=== PATIENT | male | born 1970 | race Caucasian/White ===

== ENCOUNTER 2021-03-27 01:07 | Emergency (ER) | payer OTHER ==
[~2021-03-27] VITALS: Ht 170.2 cm; Wt 77.7 kg
[2021-03-27 01:41] LABS: BASO # 0.1 10^3/uL (0.0-0.2); BASO % 0.9 % (0.0-1.0); EOS # 0.1 10^3/uL (0.0-0.5); EOS % 2.3 % (0.0-3.0); HEMATOCRIT 41.8 % (42.0-52.0); HEMOGLOBIN 14.7 g/dl (13.5-17.5); LYMPH # 1.4 10^3/uL (1.5-5.0); LYMPH % 26.3 % (24.0-44.0); MEAN CORPUSCULAR HEMOGLOBIN 32.5 pg (27.0-33.0); MEAN CORPUSCULAR HGB CONC 35.2 g/dl (32.0-36.5); MEAN CORPUSCULAR VOLUME 92.3 fl (80.0-96.0); MONO # 0.5 10^3/uL (0.0-0.8); MONO % 8.6 % (2.0-8.0); NEUTROPHILS # 3.3 10^3/uL (1.5-8.5); NEUTROPHILS % 61.3 % (36.0-66.0); PLATELET COUNT, AUTOMATED 127 10^3/uL (150-450); RED BLOOD COUNT 4.53 10^6/uL (4.30-6.10); WHITE BLOOD COUNT 5.3 10^3/uL (4.0-10.0)
[2021-03-27] MEDS ORDERED: NITROGLYCERIN 0.4 MG SUBL TABLET SL PRN (02:10)
[2021-03-27] MEDS ORDERED: ASPIRIN 81 MG CHEW TABLET PO ONE (02:10)
[2021-03-27] MEDS ORDERED: ISOVUE-370 76% 100ML VIAL As Ordered ONE (02:14)
[2021-03-27 02:23] LABS: BLOOD UREA NITROGEN 18 MG/DL (7-18); CALCIUM LEVEL 9.8 MG/DL (8.5-10.1); CARBON DIOXIDE LEVEL 26 MEQ/L (21-32); CHLORIDE LEVEL 107 MEQ/L (98-107); CK-MB VALUE MASS 1.2 NG/ML (<3.6); CPK CREATINE PHOSPHOKINASE 175 U/L (39-308); CREATININE FOR GFR 1.08 MG/DL (0.70-1.30); GLOMERULAR FILTRATION RATE > 60.0 (>56); GLUCOSE, FASTING 97 MG/DL (70-100); MB/CK RELATIVE INDEX 0.69 (< OR =4); POTASSIUM SERUM 3.7 MEQ/L (3.5-5.1); SODIUM LEVEL 140 MEQ/L (136-145); TROPONIN I < 0.02 NG/ML (< 0.10)
--- NOTE | 2021-03-27 02:59 | REPVR ---
PROCEDURE INFORMATION: Exam: XR Chest Exam date and time: 03/27/2021 1:28 AM Age: 50 years old Clinical indication: Pain; Radiating; Additional info: Chest pain TECHNIQUE: Imaging protocol: XR of the chest. Views: 1 view. COMPARISON: No relevant prior studies available. FINDINGS: Lungs: Dependent subsegmental pulmonary atelectasis. Pleural spaces: Unremarkable. No pleural effusion. No pneumothorax. Heart/Mediastinum: Unremarkable. No cardiomegaly. Bones/joints: Unremarkable. IMPRESSION: No acute findings. Electronically signed by: Jordan Mcgrath On 03/27/2021 02:59:23 AM
--- NOTE | 2021-03-27 03:15 | REPVR ---
PROCEDURE INFORMATION: Exam: CTA Chest With Contrast Exam date and time: 03/27/2021 2:10 AM Age: 50 years old Clinical indication: Pain; Other: Chest; Additional info: R/O pe TECHNIQUE: Imaging protocol: Computed tomographic angiography of the chest with contrast. 3D rendering (Not supervised by radiologist): MIP and/or 3D reconstructed images were created by the technologist. Radiation optimization: All CT scans at this facility use at least one of these dose optimization techniques: automated exposure control; mA and/or kV adjustment per patient size (includes targeted exams where dose is matched to clinical indication); or iterative reconstruction. Contrast material: ISO; Contrast volume: 75 ml; Contrast route: INTRAVENOUS (IV); COMPARISON: CR PORTABLE CHEST X-RAY 2021-03-27 01:22 FINDINGS: Pulmonary arteries: No filling defects in the pulmonary arteries to suggest pulmonary emboli. Aorta: Unremarkable. No aortic aneurysm. No aortic dissection. Lungs: Solitary right upper lobe 13 mm pulmonary nodule, question some trace macroscopic fat indicating it represents a benign hamartoma, however not completely certain. Recommend follow-up or remote comparison. Pleural spaces: Unremarkable. No pneumothorax. No pleural effusion. Heart: Unremarkable. No cardiomegaly. No pericardial effusion. Mediastinal space: Small gastroesophageal sliding type hiatal hernia. Lymph nodes: Unremarkable. No enlarged lymph nodes. Stomach and bowel: Mild gastric wall thickening and mucosal enhancement, correlate for gastritis. Bones/joints: Unremarkable. No acute fracture. Soft tissues: Unremarkable. IMPRESSION: 1. No filling defects in the pulmonary arteries to suggest pulmonary emboli. 2. Solitary right upper lobe 13 mm pulmonary nodule, question some trace macroscopic fat indicating it represents a benign hamartoma, however not completely certain. Recommend follow-up or remote comparison. 3. Mild gastric wall thickening and mucosal enhancement, correlate for gastritis. COMMENTS: As per Fleischner Society guidelines for follow-up and management of pulmonary nodules: Recommend initial follow-up chest CT at 3, 9 and 24 months. Consider contrast enhanced chest CT, PET scan and/or biopsy as clinically warranted. Electronically signed by: Jordan Mcgrath On 03/27/2021 03:14:51 AM
[2021-03-27] MEDS ORDERED: GI COCKTAIL 50ML BTL(HYOSCYAMINE/MAALOX/LIDOCAINE VISCOUS)(1:3:1) PO ONE (03:30)
[2021-03-27] MEDS ORDERED: OMEPRAZOLE 20 MG CAP PO ONE (04:15)
[2021-03-27] MEDS ORDERED: OMEP40CA4 PO (04:15)
[2021-03-27 04:17] VITALS: BP 158/102
--- NOTE | 2021-03-27 11:42 | ECGEPIP ---
[facility] - ED Test Date: 2021-03-27 Pat Name: COLT MENENDEZ Department: Room: - Gender: Male Media Relations Coordinator: : 1970 Requested By: LLEE Pham Order Number: [id number] Reading MD: Tricia Wing Measurements Intervals [place] Rate: 81 P: 42 KS: 150 QRS: -44 QRSD: 90 T: 41 QT: 376 QTc: 436 Interpretive Statements Normal sinus rhythm Left axis deviation Anterior infarct , age undetermined NSTTW abnormalities No prior Electronically Signed on 03-27-2021 11:42:10 EDT by Tricia Wing
--- NOTE | 2021-03-28 06:46 | ED PDOC ---
Post-Departure Follow-Up ft stephanie landaverde faxed formal report of cta chest for fu Aramis Melgoza MD Mar 28, 2021 06:46
== END 2021-03-27 04:25 | disposition home or self-care (01) ==
LOC: M ED 01:07
DX: R07.89 Other chest pain (principal); R03.0 Elevated blood-pressure reading, without diagnosis of hypertension; R91.1 Solitary pulmonary nodule; I25.2 Old myocardial infarction; R94.31 Abnormal electrocardiogram [ECG] [EKG]; F17.200 Nicotine dependence, unspecified, uncomplicated
CPT/HCPCS: 71045; 71275; 80048; 82550; 82553; 84484; 85025; 93005; 93041; 94760; 99285; Q9967

== ENCOUNTER 2021-05-18 12:32 | Emergency (ER) | payer OTHER ==
[~2021-05-18] VITALS: Ht 170.2 cm; Wt 85.5 kg
[~2021-05-18 12:32] MED LIST: OMEP40CA4 PO
[2021-05-18 15:46] LABS: BASO # 0.1 10^3/uL (0.0-0.2); BASO % 1.1 % (0.0-1.0); EOS # 0.1 10^3/uL (0.0-0.5); EOS % 2.1 % (0.0-3.0); HEMATOCRIT 44.7 % (42.0-52.0); HEMOGLOBIN 15.3 g/dl (13.5-17.5); LYMPH # 1.2 10^3/uL (1.5-5.0); LYMPH % 21.4 % (24.0-44.0); MEAN CORPUSCULAR HEMOGLOBIN 31.6 pg (27.0-33.0); MEAN CORPUSCULAR HGB CONC 34.2 g/dl (32.0-36.5); MEAN CORPUSCULAR VOLUME 92.4 fl (80.0-96.0); MONO # 0.5 10^3/uL (0.0-0.8); MONO % 8.9 % (2.0-8.0); NEUTROPHILS # 3.8 10^3/uL (1.5-8.5); PLATELET COUNT, AUTOMATED 138 10^3/uL (150-450); RED BLOOD COUNT 4.84 10^6/uL (4.30-6.10); WHITE BLOOD COUNT 5.7 10^3/uL (4.0-10.0)
--- NOTE | 2021-05-18 16:03 | REP ---
INDICATION: thigh pain/burning, hamstring injury 2 wks ago COMPARISON: None. TECHNIQUE: Real time compression and duplex Doppler interrogation of the left lower extremity deep venous system is performed, including the right common femoral vein.Compression of the left peroneal and posterior tibial veins is performed. FINDINGS: The left common femoral, superficial femoral and popliteal veins are fully compressible with transducer pressure and demonstrate normal spontaneous and phasic flow, without evidence of deep venous thrombosis.The right common femoral vein demonstrates no thrombus.The visualized left peroneal and posterior tibial veins demonstrate no thrombus. Fluid in the left popliteal fossa likely represents a Farnsworth's cyst, 2.1 x 0.7 x 2.3 cm. IMPRESSION: No evidence of deep venous thrombosis of the left lower extremity femoral popliteal venous system.No thrombus in the visualized left peroneal and posterior tibial veins. Left Farnsworth's cyst. <Electronically signed by Neri Aguillon > 05/18/21 [id number]
[2021-05-18 16:32] VITALS: BP 150/94
== END 2021-05-18 16:34 | disposition home or self-care (01) ==
LOC: M ED 12:32
DX: M79.652 Pain in left thigh (principal); R20.2 Paresthesia of skin

== ENCOUNTER → 2021-07-06 | Outpatient (CLI) | payer OTHER ==
--- NOTE | 2021-07-07 17:53 | REP ---
INDICATION: DIAGNOSING LUNG NODULE R91.1. COMPARISON: CT angio chest, 03/27/2021. TECHNIQUE: Following the intravenous injection of 9.2 mCi of FDG and a standard uptake period, a noncontrast CT scan, followed by a PET scan were acquired along the length of the body from the base of the skull to the mid thighs. The noncontrast helical CT imaging was performed, without breath hold, for attenuation correction of PET images and anatomic correlation, but not for primary interpretation, as it is not a of standard diagnostic quality. Images were reviewed in the axial, coronal and sagittal planes. FINDINGS: Head and neck: There is a normal distribution of FDG activity in the visualized brain parenchyma. There is calcific vascular disease of the left carotid bifurcation. There is normal uptake within the soft tissues of the neck and glandular structures. There is no lymphadenopathy identified. Chest: There is a 12 x 6 mm peripheral soft tissue density nodule in the right lung apex. The nodule measures minimal FDG activity, max SUV < 1.0. There are no pleural effusions. The heart size is upper limits of normal. There is no pericardial effusion. There is no adenopathy in the mediastinum, hilum or axilla by size criterion or metabolic activity. Abdomen and pelvis: There is a normal distribution of FDG activity within the gastrointestinal and genitourinary tract. No evidence of lymphadenopathy. There is a 4 mm stone in an interpolar calyx of the right kidney. There is calcific vascular disease of the abdominal aorta. There is colonic diverticulosis without diverticulitis. Musculoskeletal: There are no suspicious hypermetabolic, osteolytic or osteo sclerotic lesions. IMPRESSION: 1. There are no foci of abnormal FDG activity to suggest neoplastic disease. 2. The soft tissue density nodule in the apex of the right lung demonstrates no significant FDG activity. 3. Other findings as noted. <Electronically signed by Wicho Santoro > 07/07/21 [id number]
== END ==
LOC: M PLARAD 11:07
PROVIDERS: ATTEND Internal Medicine Pulmonary Disease
DX: R91.1 Solitary pulmonary nodule (principal)
CPT/HCPCS: 78815; A9552

== ENCOUNTER → 2021-10-27 | Outpatient (CLI) | payer OTHER | LOC: M PLAIMG 10:44 | PROVIDERS: ATTEND Internal Medicine Pulmonary Disease | DX: R91.8 Other nonspecific abnormal finding of lung field (principal) ==

== ENCOUNTER → 2023-01-17 | Outpatient (CLI) | payer OTHER | LOC: M RAD 08:00 | PROVIDERS: ATTEND Physician Assistant | DX: R91.8 Other nonspecific abnormal finding of lung field (principal) ==

== ENCOUNTER → 2023-01-18 | Outpatient (CLI) | payer OTHER | LOC: M CARPUL 14:44 | PROVIDERS: ATTEND Physician Assistant | DX: R06.00 Dyspnea, unspecified (principal) ==

== ENCOUNTER → 2023-01-28 | Outpatient (CLI) | payer OTHER | LOC: M SLEEP 20:00 | PROVIDERS: ATTEND Physician Assistant Medical | DX: G47.33 Obstructive sleep apnea (adult) (pediatric) (principal) ==

== ENCOUNTER → 2023-02-17 | Outpatient (CLI) | payer OTHER ==
[~2023-02-17] MED LIST changes: +METHACHOLINE KIT INH ONE
== END ==
LOC: M CARPUL 15:00
PROVIDERS: ATTEND Internal Medicine Pulmonary Disease
DX: R06.2 Wheezing (principal)
CPT/HCPCS: 94070; 95070; J7674

== ENCOUNTER → 2024-11-30 | Outpatient (REF) | payer BC, OTHER ==
[~2024-11-30] MED LIST changes: +ALBU8.5H; -METHACHOLINE KIT INH ONE; +VITMTA PO
== END ==
LOC: M LAB REF 15:09
PROVIDERS: ATTEND Surgery
DX: L72.3 Sebaceous cyst (principal)